=== PATIENT | male | born 1990 | race African-American/Black ===

== ENCOUNTER 2021-03-04 12:43 | Inpatient (IN) ==
[2021-03-04] MEDS ORDERED: SODIUM CHLORIDE 0.9% 1000ML 1,000 ML IV SCH ×2 (13:45→15:45)
--- NOTE | 2021-03-04 13:51 | Emergency Department Note ---
History of Present Illness General Chief complaint: Lethargic Time Seen by Provider: 03/04/21 13:23 History of Present Illness Maximum Pain Intensity: 0 This is a 30-year-old male that presents to the emergency department via EMS over concerns of hypotension per the [facility] where he is currently receiving treatment. Per report the patient has been there since May 2020. He was referred here for hypotension, decreased intake and lethargy. Reportedly his roommate is positive for COVID-19. Documented blood pressure prehospital at the facility was 67/42. Patient is a known diabetic and a BSG prior to arrival here of 102. Also there is history of psychosis and 201 commitment. Review of the patient's chart from the [facility] reveals a diagnosis of paranoid schizophrenia/psychosis and he is currently on several medications. Patient is on medication for his diabetes as well as a regimen of incentive spirometer, vitamin C, vitamin D, zinc, Cogentin, Clozaril, guaifenesin, lisinopril, lithium, Claritin-D, multivitamin, Metformin and Inde ral. When questioned, the patient does not think that he took lithium today. The patient does believe that he has been urinating. I will note that the patient is able to answer many of the questions asked but sometimes does not respond to other questions. The patient at this time denies any fevers, chills, chest pain, shortness of breath, headache, abdominal pain. Patient notes that he is feeling much better upon arrival here to the emergency department. Home Medications Medication Instructions Recorded Confirmed Type acetaminophen 650 mg PO Q4 PRN MDD 2 tabs 03/04/21 03/04/21 History albuterol sulfate 2 puff INHALATION Q4 PRN MDD 6 03/04/21 03/04/21 History doses alum-mag hydroxide-simeth [Antacid 30 ml PO QID PRN 03/04/21 03/04/21 History Plus] ascorbic acid (vitamin C) [Vitamin 1 g PO DAILY 03/04/21 03/04/21 History C] benztropine 0.5 mg PO BID 03/04/21 03/04/21 History chlorpromazine 100 mg PO Q12 PRN MDD 2 tabs 03/04/21 03/04/21 History cholecalciferol (vitamin D3) 50 mcg PO DAILY 03/04/21 03/04/21 History [Vitamin D3] clozapine [Clozaril] 50 mg PO QAM 03/04/21 03/04/21 History clozapine [Clozaril] 75 mg PO HS 03/04/21 03/04/21 History clozapine [Clozaril] 200 mg PO HS 03/04/21 03/04/21 History diphenhydramine HCl 50 mg PO Q12 PRN MDD 2 doses 03/04/21 03/04/21 History guaifenesin 200 mg PO BID 03/04/21 03/04/21 History insulin detemir U-100 [Levemir 20 unit SUBCUT BID 03/04/21 03/04/21 History U-100 Insulin] lisinopril 15 mg PO DAILY 03/04/21 03/04/21 History lithium carbonate [Eskalith CR] 450 mg PO QAM 03/04/21 03/04/21 History lithium carbonate [Lithobid] 600 mg PO HS 03/04/21 03/04/21 History loratadine-pseudoephedrine 1 tab PO Q12H 03/04/21 03/04/21 History [Claritin-D 12 Hour] metformin 1,000 mg PO BID 03/04/21 03/04/21 History multivitamin 1 tab PO DAILY 03/04/21 03/04/21 History nicotine (polacrilex) [Nicorette] 4 mg BUCCAL 5XD PRN MDD 5 03/04/21 03/04/21 History zinc 100 mg PO DAILY 03/04/21 03/04/21 History Allergies Allergy/AdvReac Type Severity Reaction Status Date / Time No Known Allergies Allergy Unverified 03/04/21 16:30 Past Med/Surg History Medical History Hx of diabetes mellitus Paranoid schizophrenia Surgical History No pertinent past surgical history Social History Smoking Status: Current every day smoker Tobacco Type: Cigarettes Cigarettes Per Day: 40; Second Hand Exposure: No; Do You Dip or Chew Tobacco: No; Tobacco Cessation Education Requested by Patient: No Hx Alcohol Use: Yes Alcohol type: beer Hx Substance Use: No Preferred Language: Syriac Beliefs That Will Affect Care: None Current Living Situation: Other Current Living Situation Comment: Pt has been at the [facility] since May 2020 Other Information That Helps Us Care for You: No Feels Safe at Home: Yes Safety Concerns: Feels Safe At This Time Assistive Devices: None Review of Systems A total of 10 systems reviewed and were otherwise negative Physical Exam Vital Signs Vital Signs - 24 hr 03/04/21 12:52 03/04/21 12:54 03/04/21 13:00 Temperature Temperature Source Pulse Rate 80 80 78 Pulse Rate [Apical] Pulse Rate from SpO2 Sensor 80 80 78 Respiratory Rate 17 19 18 Respiratory Effort / Characteristics Respiratory Depth Respiratory Pattern Blood Pressure 94/52 L Blood Pressure [Left Arm] Blood Pressure Mean 66 Blood Pressure Mean [Left Arm] Blood Pressure Position Pulse Oximetry 97 98 98 Oxygen Delivery Method Oxygen Flow Rate Sepsis Recent Fever Within 48 Hours Sepsis New/Unexplained Change in Mental Status Sepsis Action Taken by Nursing 03/04/21 13:06 03/04/21 13:15 03/04/21 13:30 Temperature 36.5 C Temperature Source Oral Pulse Rate 87 78 80 Pulse Rate [Apical] Pulse Rate from SpO2 Sensor 79 80 Respiratory Rate 14 16 18 Respiratory Effort / Characteristics Non-Labored Spontaneous Respiratory Depth Normal Respiratory Pattern Regular Blood Pressure 94/52 L Blood Pressure [Left Arm] Blood Pressure Mean 66 Blood Pressure Mean [Left Arm] Blood Pressure Position Lying Pulse Oximetry 98 97 98 Oxygen Delivery Method Room Air Oxygen Flow Rate Sepsis Recent Fever Within 48 Hours No Sepsis New/Unexplained Change in Mental Status N/A Sepsis Action Taken by Nursing No Action Required 03/04/21 13:45 03/04/21 14:00 03/04/21 14:11 Temperature Temperature Source Pulse Rate 80 80 78 Pulse Rate [Apical] Pulse Rate from SpO2 Sensor Respiratory Rate 14 18 17 Respiratory Effort / Characteristics Respiratory Depth Respiratory Pattern Blood Pressure 77/52 L Blood Pressure [Left Arm] Blood Pressure Mean 60 Blood Pressure Mean [Left Arm] Blood Pressure Position Pulse Oximetry Oxygen Delivery Method Oxygen Flow Rate Sepsis Recent Fever Within 48 Hours Sepsis New/Unexplained Change in Mental Status Sepsis Action Taken by Nursing 03/04/21 14:15 03/04/21 14:16 03/04/21 14:21 Temperature Temperature Source Pulse Rate 81 80 80 Pulse Rate [Apical] 80 Pulse Rate from SpO2 Sensor Respiratory Rate 21 16 18 Respiratory Effort / Characteristics Respiratory Depth Respiratory Pattern Blood Pressure 80/50 L Blood Pressure [Left Arm] 80/50 L Blood Pressure Mean 60 Blood Pressure Mean [Left Arm] 60 Blood Pressure Position Pulse Oximetry 98 Oxygen Delivery Method Room Air Oxygen Flow Rate 98 Sepsis Recent Fever Within 48 Hours Sepsis New/Unexplained Change in Mental Status Sepsis Action Taken by Nursing 03/04/21 14:30 03/04/21 14:31 03/04/21 14:33 Temperature Temperature Source Pulse Rate 81 81 Pulse Rate [Apical] Pulse Rate from SpO2 Sensor Respiratory Rate 15 15 Respiratory Effort / Characteristics Respiratory Depth Respiratory Pattern Blood Pressure 89/55 L Blood Pressure [Left Arm] 89/55 L Blood Pressure Mean 66 Blood Pressure Mean [Left Arm] 66 Blood Pressure Position Pulse Oximetry Oxygen Delivery Method Oxygen Flow Rate Sepsis Recent Fever Within 48 Hours Sepsis New/Unexplained Change in Mental Status Sepsis Action Taken by Nursing 03/04/21 14:56 03/04/21 14:58 03/04/21 15:00 Temperature Temperature Source Pulse Rate 82 81 83 Pulse Rate [Apical] Pulse Rate from SpO2 Sensor Respiratory Rate 16 20 19 Respiratory Effort / Characteristics Respiratory Depth Respiratory Pattern Blood Pressure 94/60 L Blood Pressure [Left Arm] Blood Pressure Mean 71 Blood Pressure Mean [Left Arm] Blood Pressure Position Pulse Oximetry Oxygen Delivery Method Oxygen Flow Rate Sepsis Recent Fever Within 48 Hours Sepsis New/Unexplained Change in Mental Status Sepsis Action Taken by Nursing 03/04/21 15:15 03/04/21 15:30 03/04/21 15:37 Temperature Temperature Source Pulse Rate 84 85 Pulse Rate [Apical] Pulse Rate from SpO2 Sensor Respiratory Rate 18 19 Respiratory Effort / Characteristics Respiratory Depth Respiratory Pattern Blood Pressure 112/64 Blood Pressure [Left Arm] Blood Pressure Mean 80 Blood Pressure Mean [Left Arm] Blood Pressure Position Pulse Oximetry Oxygen Delivery Method Oxygen Flow Rate Sepsis Recent Fever Within 48 Hours Sepsis New/Unexplained Change in Mental Status Sepsis Action Taken by Nursing 03/04/21 16:12 03/04/21 16:13 03/04/21 16:15 Temperature Temperature Source Pulse Rate 95 H 85 83 Pulse Rate [Apical] Pulse Rate from SpO2 Sensor Respiratory Rate 20 20 19 Respiratory Effort / Characteristics Respiratory Depth Respiratory Pattern Blood Pressure 104/63 Blood Pressure [Left Arm] Blood Pressure Mean 76 Blood Pressure Mean [Left Arm] Blood Pressure Position Pulse Oximetry Oxygen Delivery Method Oxygen Flow Rate Sepsis Recent Fever Within 48 Hours Sepsis New/Unexplained Change in Mental Status Sepsis Action Taken by Nursing 03/04/21 16:20 03/04/21 16:30 03/04/21 16:45 Temperature Temperature Source Pulse Rate 85 83 Pulse Rate [Apical] Pulse Rate from SpO2 Sensor Respiratory Rate 16 18 Respiratory Effort / Characteristics Respiratory Depth Respiratory Pattern Blood Pressure Blood Pressure [Left Arm] 112/60 Blood Pressure Mean Blood Pressure Mean [Left Arm] 77 Blood Pressure Position Pulse Oximetry Oxygen Delivery Method Oxygen Flow Rate Sepsis Recent Fever Within 48 Hours Sepsis New/Unexplained Change in Mental Status Sepsis Action Taken by Nursing 03/04/21 17:00 03/04/21 17:15 Temperature Temperature Source Pulse Rate 64 91 H Pulse Rate [Apical] Pulse Rate from SpO2 Sensor 64 Respiratory Rate 16 19 Respiratory Effort / Characteristics Respiratory Depth Respiratory Pattern Blood Pressure 143/93 H Blood Pressure [Left Arm] Blood Pressure Mean 109 Blood Pressure Mean [Left Arm] Blood Pressure Position Pulse Oximetry 94 Oxygen Delivery Method Oxygen Flow Rate Sepsis Recent Fever Within 48 Hours Sepsis New/Unexplained Change in Mental Status Sepsis Action Taken by Nursing VITAL SIGNS - Vital signs and nursing notes were reviewed. Hypotensive, otherwise stable. GENERAL -30-year-old male appearing his stated age who is in no acute distress. Communicates well with provider and answers questions appropriately. The patient is with flat affect. SKIN - Without rashes. No meningeal or petechial rash. HEAD - NC/AT. EYES - PERRL with EOMI bilaterally. Sclera anicteric. EARS - No deformities of external structures noted on gross examination bilaterally. NOSE - Midline and without cyanosis. No epistaxis or purulent drainage noted. MOUTH/OROPHARYNX - Without perioral cyanosis. NECK - Neck with FROM. No nuchal rigidity. LUNGS - Chest wall symmetric without accessory muscle use, intercostals retractions, or central cyanosis. Normal vesicular breath sounds CTA B/L. No wheezes, rales, or rhonchi appreciated. CARDIAC - RRR with S1/S2. No murmur, rubs, or gallops appreciated. ABDOMEN - Abdominal contour normal without pulsations or visible masses. BS normoactive all four quadrants. No tenderness, palpable masses, hepatosplenomegaly, or ascites noted. EXTREMITIES - No clubbing or peripheral cyanosis. No pretibial edema present. +5/5 strength noted in UE/LE bilaterally. NEUROLOGIC - Cranial nerves II through XII grossly intact. Sensory intact to light touch throughout. PSYCH - A&O, and cooperates fully with examiner. Patient is with flat affect but does answer most questions. Course Administered Medications Benztropine Mesylate (Benztropine Mesylate 0.5 Mg Tab) 0.5 mg PO BID BETO Stop: 04/03/21 21:00 Last Admin: 03/04/21 23:16 Dose: 0.5 mg Documented by: [id number] Clozapine (Clozapine 100 Mg Tab) 200 mg PO HS BETO Stop: 04/03/21 21:00 Last Admin: 03/04/21 23:16 Dose: 200 mg Documented by: [id number] Clozapine (Clozapine 25 Mg Tab) 75 mg PO HS BETO Stop: 04/03/21 21:00 Last Admin: 03/04/21 23:16 Dose: 75 mg Documented by: [id number] Guaifenesin (Guaifenesin Sugar Free 100 Mg/5 Ml Udc) 200 mg PO BID BETO Stop: 03/06/21 21:00 Last Admin: 03/04/21 23:16 Dose: 200 mg Documented by: [id number] Parenteral Electrolytes (Normosol-R) 1,000 mls @ 125 mls/hr IV .Q8H BETO Stop: 04/03/21 17:59 Last Admin: 03/04/21 22:44 Dose: 125 mls/hr Documented by: [id number] Loratadine (Loratadine 10 Mg Tab) 10 mg PO DAILY BETO Stop: 03/06/21 08:59 Last Admin: 03/04/21 23:14 Dose: Not Given Documented by: [id number] Discontinued Medications Sodium Chloride (Nss 1000ml) 1,000 mls @ 999 mls/hr IV .Q1H1M BETO Stop: 03/04/21 14:45 Last Infusion: 03/04/21 15:30 Dose: 0 mls/hr Documented by: [id number] Admin: 03/04/21 14:21 Dose: 999 mls/hr Documented by: [id number] Sodium Chloride (Nss 1000ml) 1,000 mls @ 500 mls/hr IV .Q2H BETO Stop: 03/04/21 17:44 Last Infusion: 03/04/21 18:04 Dose: 0 mls/hr Documented by: [id number] Admin: 03/04/21 16:00 Dose: 500 mls/hr Documented by: [id number] Medical Decision Making Laboratory Data Result diagrams: 03/04/21 14:02 03/04/21 14:02 Lab Results 03/04/21 03/04/21 03/04/21 Range/Units 14:02 14:02 14:02 WBC 7.84 (4.8-10.8) K/uL RBC 4.44 L (4.7-6.1) M/uL Hgb 12.7 L (14.0-18.0) g/dL Hct 37.3 L (42-52) % MCV 84.0 (80-100) fL MCH 28.6 (25-34) pg MCHC 34.0 (32-36) g/dL RDW Std Deviation 44.2 (36.4-46.3) fL RDW Coeff of Julia 14.2 (11.5-14.5) % Plt Count 200 (130-400) K/uL MPV 11.6 H (7.4-10.4) fL Immature Gran % (Auto) 0.3 % Neut % (Auto) 66.0 % Lymph % (Auto) 22.7 % Major % (Auto) 8.5 % Eos % (Auto) 2.2 % Baso % (Auto) 0.3 % Neut # (Auto) 5.18 (1.4-6.5) K/uL Lymph # (Auto) 1.78 (1.2-3.4) K/uL Major # (Auto) 0.67 H (0.11-0.59) K/uL Eos # (Auto) 0.17 (0-0.5) K/uL Baso # (Auto) 0.02 (0-0.2) K/uL Immature Gran # (Auto) 0.02 (0.00-0.02) K/uL Sodium 131 L (136-145) mmol/L Potassium 4.9 (3.5-5.1) mmol/L Chloride 101 (98-107) mmol/L Carbon Dioxide 22 (21-32) mmol/L Anion Gap 8.0 (3-11) BUN 41 H (7-18) mg/dl Creatinine 7.50 H* (0.6-1.4) mg/dl Est Cr Clr Drug Dosing 14.9 ml/min Est GFR ( Amer) 10.1 Est GFR (Non-Af Amer) 8.7 BUN/Creatinine Ratio 5.4 L (10-20) Glucose 80 (70-99) mg/dl Lactate (0.4-2.0) mmol/L Calcium 10.0 (8.5-10.1) mg/dl Magnesium 3.2 H (1.8-2.4) mg/dl Total Bilirubin 0.3 (0.2-1) mg/dl AST 10 L (15-37) U/L ALT 31 (12-78) U/L Alkaline Phosphatase 70 (45-117) U/L Troponin I < 0.015 (0-0.045) ng/ml Total Protein 7.8 (6.4-8.2) gm/dl Albumin 3.3 L (3.4-5.0) gm/dl Globulin 4.5 H (2.5-4.0) gm/dl Albumin/Globulin Ratio 0.7 L (0.9-2) Procalcitonin (0-0.5) ng/ml TSH 4.070 (0.300-4.500) uIu/ml [place] 2.4 H* (0.6-1.2) mmol/L COVID-19 Eval Order SARS-CoV-2 (PCR) (Negative) Influenza Type A (PCR) (Neg) Influenza Type B (PCR) (Neg) RSV (RT-PCR) (Neg) 03/04/21 03/04/21 03/04/21 Range/Units 14:02 14:02 14:13 WBC (4.8-10.8) K/uL RBC (4.7-6.1) M/uL Hgb (14.0-18.0) g/dL Hct (42-52) % MCV (80-100) fL MCH (25-34) pg MCHC (32-36) g/dL RDW Std Deviation (36.4-46.3) fL RDW Coeff of Julia (11.5-14.5) % Plt Count (130-400) K/uL MPV (7.4-10.4) fL Immature Gran % (Auto) % Neut % (Auto) % Lymph % (Auto) % Major % (Auto) % Eos % (Auto) % Baso % (Auto) % Neut # (Auto) (1.4-6.5) K/uL Lymph # (Auto) (1.2-3.4) K/uL Major # (Auto) (0.11-0.59) K/uL Eos # (Auto) (0-0.5) K/uL Baso # (Auto) (0-0.2) K/uL Immature Gran # (Auto) (0.00-0.02) K/uL Sodium (136-145) mmol/L Potassium (3.5-5.1) mmol/L Chloride (98-107) mmol/L Carbon Dioxide (21-32) mmol/L Anion Gap (3-11) BUN (7-18) mg/dl Creatinine (0.6-1.4) mg/dl Est Cr Clr Drug Dosing ml/min Est GFR ( Amer) Est GFR (Non-Af Amer) BUN/Creatinine Ratio (10-20) Glucose (70-99) mg/dl Lactate 2.3 H* (0.4-2.0) mmol/L Calcium (8.5-10.1) mg/dl Magnesium (1.8-2.4) mg/dl Total Bilirubin (0.2-1) mg/dl AST (15-37) U/L ALT (12-78) U/L Alkaline Phosphatase (45-117) U/L Troponin I (0-0.045) ng/ml Total Protein (6.4-8.2) gm/dl Albumin (3.4-5.0) gm/dl Globulin (2.5-4.0) gm/dl Albumin/Globulin Ratio (0.9-2) Procalcitonin 0.49 (0-0.5) ng/ml TSH (0.300-4.500) uIu/ml [place] (0.6-1.2) mmol/L COVID-19 Eval Order CovFluRsv at [facility] SARS-CoV-2 (PCR) (Negative) Influenza Type A (PCR) (Neg) Influenza Type B (PCR) (Neg) RSV (RT-PCR) (Neg) 03/04/21 03/04/21 Range/Units 14:13 17:54 WBC (4.8-10.8) K/uL RBC (4.7-6.1) M/uL Hgb (14.0-18.0) g/dL Hct (42-52) % MCV (80-100) fL MCH (25-34) pg MCHC (32-36) g/dL RDW Std Deviation (36.4-46.3) fL RDW Coeff of Julia (11.5-14.5) % Plt Count (130-400) K/uL MPV (7.4-10.4) fL Immature Gran % (Auto) % Neut % (Auto) % Lymph % (Auto) % Major % (Auto) % Eos % (Auto) % Baso % (Auto) % Neut # (Auto) (1.4-6.5) K/uL Lymph # (Auto) (1.2-3.4) K/uL Major # (Auto) (0.11-0.59) K/uL Eos # (Auto) (0-0.5) K/uL Baso # (Auto) (0-0.2) K/uL Immature Gran # (Auto) (0.00-0.02) K/uL Sodium (136-145) mmol/L Potassium (3.5-5.1) mmol/L Chloride (98-107) mmol/L Carbon Dioxide (21-32) mmol/L Anion Gap (3-11) BUN (7-18) mg/dl Creatinine (0.6-1.4) mg/dl Est Cr Clr Drug Dosing ml/min Est GFR ( Amer) Est GFR (Non-Af Amer) BUN/Creatinine Ratio (10-20) Glucose (70-99) mg/dl Lactate 1.1 (0.4-2.0) mmol/L Calcium (8.5-10.1) mg/dl Magnesium (1.8-2.4) mg/dl Total Bilirubin (0.2-1) mg/dl AST (15-37) U/L ALT (12-78) U/L Alkaline Phosphatase (45-117) U/L Troponin I (0-0.045) ng/ml Total Protein (6.4-8.2) gm/dl Albumin (3.4-5.0) gm/dl Globulin (2.5-4.0) gm/dl Albumin/Globulin Ratio (0.9-2) Procalcitonin (0-0.5) ng/ml TSH (0.300-4.500) uIu/ml [place] (0.6-1.2) mmol/L COVID-19 Eval Order SARS-CoV-2 (PCR) POSITIVE A* (Negative) Influenza Type A (PCR) Negative (Neg) Influenza Type B (PCR) Negative (Neg) RSV (RT-PCR) Negative (Neg) Imaging Data Radiologist's Impression: Chest X-Ray 03/04/21 13:44 XR chest 1V portable CLINICAL HISTORY: hypotension, lethargic COMPARISON STUDY: No previous studies for comparison. FINDINGS: Lung volumes are at the lower limits of normal. Lungs are clear. There is no pneumothorax or pleural effusion. Cardiac size is normal. Mediastinal contours are normal. There is no evidence for pulmonary edema. IMPRESSION: No acute cardiopulmonary findings. ACT 112: Negative or not required by law. Electronically signed by: Kolby Vergara M.D. 03/04/2021 2:[address] 03/04/21 13:44 CT head/brain wo con CLINICAL HISTORY: hypotension, lethargic COMPARISON STUDY: No previous studies for comparison. TECHNIQUE: Axial CT of the brain is performed from the vertex to the skull base. IV contrast was not administered for this examination. A dose lowering umair hnique was utilized adhering to the principles of ALARA. CT DOSE: 1973.40 mGycm FINDINGS: No intra or extra-axial mass lesions are visualized. There is no CT evidence of acute cortical infarction. There is no evidence of midline shift. There is no acute hemorrhage. No calvarial fractures are visualized. There is no evidence of pathologic ventricular dilatation. There is ethmoid and maxillary and sphenoid sinus mucosal thickening. There is a sphenoid sinus air-fluid level. IMPRESSION: 1. No acute intracranial findings 2. Inflammatory changes within the paranasal sinuses ACT 112: Negative or not required by law. Electronically signed by: Sabino Jaquez M.D. 03/04/2021 4:09 PM Abdomen/Pelvis CT 03/04/21 15:[address] WITHOUT CONTRAST CT DOSE: 1206.15 mGycm HISTORY: acute renal failure TECHNIQUE: Multiaxial CT images of the abdomen and pelvis were performed without contrast. A dose lowering technique was utilized adhering to the principles of ALARA. COMPARISON STUDY: None. FINDINGS: Suboptimal study due to the motion artifact. The left lung base appears clear. There are few small nodular densities within the right lower lobe with the largest on image 4 measuring 9 mm. These favor small focal areas of inflammatory/infectious change given the patient's age. No pneumoperitoneum. No pneumatosis. No fractures within the visualized osseous structures. Streak artifact from the patient's overlapping arms. The unenhanced liver, spleen, gallbladder, adrenal glands, and pancreas are unremarkable. No retroperitoneal lymphadenopathy. Normal caliber abdominal aorta. 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 No renal or ureteral stones. No hydronephrosis. Moderate bladder wall thickening with adjacent fat stranding. The bladder is completely decompressed. No pelvic free fluid. Suboptimal evaluation for bowel pathology due to the lack of intravenous and oral contrast. However, there is no definite bowel wall thickening or obstruction. Normal appendix. IMPRESSION: 1. Moderate bladder wall thickening with adjacent fat stranding. This could be d ue to the decompression. However, recommend correlation with urinalysis to assess for a cystitis. 2. Horseshoe kidney. No renal or ureteral stones. No hydronephrosis. 3. No definite bowel wall thickening or obstruction. 4. Normal appendix. 5. There are few small nodular densities within the right lower lobe with the largest measuring 9 mm. This favors mild inflammatory/infectious change. ACT 112: Negative or not required by law. Electronically signed by: Joss Alicea M.D. 03/04/2021 4:15 PM MDM Narrative Patient was seen and evaluated as above in room C10. Review was performed of nursing notes and vital signs. I did review pertinent patient history from the [facility]. After obtaining a thorough history and physical examination the above work up was performed. Patient presents to us today with concerns of hypotension. On arrival he does answer most questions appropriately but is with flat affect. He is hypotensive. Options of care were discussed with the patient. IV access established. Labs were drawn. He was given IV fluids. Laboratory studies were no leukocytosis. Mild anemia noted with hemoglobin of 12.7. Patient is with creatinine here of 7.5 with a BUN at 41. Baseline is unknown. Sodium 131. Lactate 2.3. Mag nesium 3.2. Pro-Nader and TSH are within normal limits. Covid testing here is positive. [place] level is elevated at 2.4. With the findings as noted above I did find it reasonable to discuss the case with the on-call fireworks assembly supervisor, Dr. Elliott. We discussed the importance of identifying if the patient is able to produce urine. At that time of the conversation the Covid testing was pending and the patient had not been able to give a urine sample. We discussed how if the patient was able to produce urine on his own then emergent dialysis is not necessarily needed however if he continues without any urine output despite IV hydration here then dialysis is indicated. I will note that since that conversation the patient reportedly has been able to urinate but has yet to provide a sample. In addition I did obtain a CT scan of the patient's head as well as abdomen/pelvis all without contrast. There is moderate bladder wall thickening noted with adjacent fat stranding. CT scan of the head without acute process. Urinalysis pending at this time. I do find it to be in the patient's best interest to stay here in the hospital for further evaluation and management. Case discussed with the hospitalist team. Patient will be admitted to the hospital. Please refer to further documentation regarding his stay. I also obtained patient consent and discussed patient case with his nurse at the [facility] to obtain further history. I spoke with Pam. Patient has been there since May 2020 and usually is quite verbal but as of late has been quite lethargic and was found to be hypotensive today. Case was discussed with the attending physician. Patient's EKG here reveals sinus rhythm at a rate of [address] elevation noted in leads I, 2 as well as aVF. Mild ST depression noted in lead V1. This is not felt to represent a STEMI given clinical presentation and findings here today. An order was placed for continuous cardiac monitoring. The monitor shows a rate of 80 with sinus rhythm. I attest that I have personally reviewed the patient medication list. GCS: 15 In the evaluation and treatment of this patient the following differential diagnoses were entertained: COVID-19, dehydration, ARF, electrolyte disturbance, myocarditis, pericarditis, NV, PE, pneumonia, among others. Impression & Plan HARVEY (acute kidney injury), Hypotension, [place] toxicity, COVID-19 Discharge Plan Visit Data Chief Complaint: Lethargic ED Provider: Yokasta Hitchcock ED Midlevel Provider: Emeka Meléndez Discharge Problem: HARVEY (acute kidney injury), Hypotension, [place] toxicity, COVID-19 Patient Disposition: Admitted As Inpatient Condition: Good Discharge Instructions Interventions: ED Discharge Assessment Last Done: 03/04/21 20:25
--- NOTE | 2021-03-04 14:26 | XRay Report ---
XR chest 1V portable CLINICAL HISTORY: hypotension, lethargic COMPARISON STUDY: No previous studies for comparison. FINDINGS: Lung volumes are at the lower limits of normal. Lungs are clear. There is no pneumothorax o r pleural effusion. Cardiac size is normal. Mediastinal contours are normal. There is no evidence for pulmonary edema. IMPRESSION: No acute cardiopulmonary findings. ACT 112: Negative or not required by law. Electronically signed by: Kolby Vergara M.D. 03/04/2021 2:24 PM
[2021-03-04 14:35] LABS: Basophils # (auto) 0.02 K/uL (0-0.2); Basophils % (auto) 0.3 %; Eosinophils # (auto) 0.17 K/uL (0-0.5); Eosinophils % (auto) 2.2 %; Hematocrit (blood only) 37.3 % (42-52); Hemoglobin 12.7 g/dL (14.0-18.0); Immature Granulocytes # (auto) 0.02 K/uL (0.00-0.02); Immature Granulocytes % (auto) 0.3 %; Lymphocytes # (auto) 1.78 K/uL (1.2-3.4); Lymphocytes % (auto) 22.7 %; Mean Corpuscular Hemoglobin 28.6 pg (25-34); Mean Platelet Volume 11.6 fL (7.4-10.4); Monocytes # (auto) 0.67 K/uL (0.11-0.59); Monocytes % (auto) 8.5 %; Neutrophils # (auto) 5.18 K/uL (1.4-6.5); Platelet Count 200 K/uL (130-400); RDW Coefficient of Variation 14.2 % (11.5-14.5); RDW Standard Deviation 44.2 fL (36.4-46.3); Red Blood Count 4.44 M/uL (4.7-6.1); White Blood Count 7.84 K/uL (4.8-10.8)
[2021-03-04 15:06] LABS: Alanine Aminotransferase 31 U/L (12-78); Albumin Globulin Ratio 0.7 (0.9-2); Albumin Level 3.3 gm/dl (3.4-5.0); Alkaline Phosphatase 70 U/L (45-117); Aspartate Aminotransferase 10 U/L (15-37); BUN Creatinine Ratio 5.4 (10-20); Bilirubin,Total 0.3 mg/dl (0.2-1); Blood Urea Nitrogen 41 mg/dl (7-18); Carbon Dioxide 22 mmol/L (21-32); Chloride 101 mmol/L (98-107); Creatinine Clr Calc Pharmacy 14.9 ml/min; Est GFR (African American) 10.1; Est GFR (Non-African American) 8.7; Globulin 4.5 gm/dl (2.5-4.0); Glucose 80 mg/dl (70-99); Magnesium 3.2 mg/dl (1.8-2.4); Potassium 4.9 mmol/L (3.5-5.1); Sodium 131 mmol/L (136-145); Total Protein 7.8 gm/dl (6.4-8.2); Troponin I < 0.015 ng/ml (0-0.045)
--- NOTE | 2021-03-04 15:27 | Electrocardiogram Report ---
Test Reason : Blood Pressure : / mmHG Vent. Rate : 080 BPM Atrial Rate : 080 BPM P-R Int : 188 ms QRS Dur : 090 ms QT Int : 376 ms P-R-T Axes : 060 037 030 degrees QTc Int : 433 ms Normal sinus rhythm ST elevation, consider early repolarization, pericarditis, or injury Abnormal ECG No previous ECGs available Confirmed by Kirk Noland ([id number]) on 03/04/2021 3:27:19 PM Referred By: Yoseph Rosado Confirmed By:Kevin Noland
[2021-03-04 15:29] LABS: Influenza A virus by PCR Negative (Neg); Influenza B virus by PCR Negative (Neg); RSV by PCR Negative (Neg)
[2021-03-04 15:38] LABS: SARS CoV2 RNA(COVID-19) InHosp POSITIVE (Negative)
--- NOTE | 2021-03-04 16:10 | CT Scan Report ---
CT head/brain wo con CLINICAL HISTORY: hypotension, lethargic COMPARISON STUDY: No previous studies for comparison. TECHNIQUE: Axial CT of the brain is performed from the vertex to the skull base. IV contrast was not administered for this examination. A dose lowering technique was utilized adhering to the principles of ALARA. CT DOSE: 1973.40 mGycm FINDINGS: No intra or extra-axial mass lesions are visualized. There is no CT evidence of acute cortical infarc tion. There is no evidence of midline shift. There is no acute hemorrhage. No calvarial fractures ar e visualized. There is no evidence of pathologic ventricular dilatation. There is ethmoid and maxillary and sphenoid sinus mucosal thickening. There is a sphenoid sinus air-f luid level. IMPRESSION: 1. No acute intracranial findings 2. Inflammatory changes within the paranasal sinuses ACT 112: Negative or not required by law. Electronically signed by: Sabino Jaquez M.D. 03/04/2021 4:09 PM
--- NOTE | 2021-03-04 16:16 | CT Scan Report ---
ABDOMEN AND PELVIS CT WITHOUT CONTRAST CT DOSE: 1206.15 mGycm HISTORY: acute renal failure TECHNIQUE: Multiaxial CT images of the abdomen and pelvis were performed without contrast. A dose lo wering technique was utilized adhering to the principles of ALARA. COMPARISON STUDY: None. FINDINGS: Suboptimal study due to the motion artifact. The left lung base appears clear. There are fe w small nodular densities within the right lower lobe with the largest on image 4 measuring 9 mm. The se favor small focal areas of inflammatory/infectious change given the patient's age. No pneumoperito neum. No pneumatosis. No fractures within the visualized osseous structures. Streak artifact from the patient's overlapping arms. The unenhanced liver, spleen, gallbladder, adrenal glands, and pancreas are unremarkable. No retroperitoneal lymphadenopathy. Normal caliber abdominal aorta. 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 No renal or ureteral stones. No hydronephrosis. Moderate bladder wall thickening with a djacent fat stranding. The bladder is completely decompressed. No pelvic free fluid. Suboptimal evalu ation for bowel pathology due to the lack of intravenous and oral contrast. However, there is no defi nite bowel wall thickening or obstruction. Normal appendix. IMPRESSION: 1. Moderate bladder wall thickening with adjacent fat stranding. This could be due to the decompressi on. However, recommend correlation with urinalysis to assess for a cystitis. 2. Horseshoe kidney. No renal or ureteral stones. No hydronephrosis. 3. No definite bowel wall thickening or obstruction. 4. Normal appendix. 5. There are few small nodular densities within the right lower lobe with the largest measuring 9 mm. This favors mild inflammatory/infectious change. ACT 112: Negative or not required by law. Electronically signed by: Joss Alicea M.D. 03/04/2021 4:15 PM
--- NOTE | 2021-03-04 17:34 | Nephrology Consultation ---
Date of Consultation March 04, 2021 Assessment & Plan (1) HARVEY (acute kidney injury): Clinically appears prerenal. UA/microscopy pending. Non-oliguric per history. CT negative for obstruction. Electrolytes acceptable. Tolerating IVF. Continue balanced isotonic IVF replacement to encourage positive fluid balance. Document strict I/O's. Repeat metabolic profile at 7 PM. No emergent indication for hemodialysis at this time. We revisit need for dialysis if mental status declines or inadequate urine output. (2) [place] toxicity: [place] held. IVF being provided. Lethargy is improving with supportive care. Will hold HD for now while monitoring. (3) Hypotension: Hold lisinopril. BP improving with intravascular volume expansion. (4) Diabetes mellitus: Hold metformin. History of Present Illness Reason for Consultation: HARVEY Requesting Physician: mEeka Meléndez PA-C Attending Physician: Emeka Meléndez PA-C History of Present Illness Mr. Marilin Galeas is a 30-year-old male with a complicated psychiatric history including paranoid schizophrenia. He presented to the ED at [facility] today for evaluation of mental status changes. Workup notable for HARVEY with a serum creatinine of 7 mg/dL and elevated lithium level of 2.4. The attending ER provider contacted me to review the plan of care. Mr. Galeas was seen and evaluated this afternoon. I discussed the patient with the bedside nurse and reviewed the plan of care with Emeka Meléndez PA-C as well as Dr. Partida (admitting hospitalist). Baseline creatinine unknown at this time. CT scan of the abdomen and pelvis demonstrated a horseshoe kidney without evidence of obstruction. Marilin is a resident at the [facility]. His roommate recently tested positive for COVID-19. Marilin has been progressively lethargic for several days. He was found to be hypotensive and confused today prompting transfer to the ER for evaluation. Medical history is notable for diabetes mellitus, hypertension. Management has included IVF. Marilin has received 2 L of NSS. He is subjectively non-oliguric. No urine sample has been collected in the ER at this time. Mental status is improving with IVF and supportive care. Allergies Allergy/AdvReac Type Severity Reaction Status Date / Time No Known Allergies Allergy Unverified 03/04/21 16:30 Home Medications Medication Instructions Recorded Confirmed Type acetaminophen 650 mg PO Q4 PRN MDD 2 tabs 03/04/21 03/04/21 History albuterol sulfate 2 puff INHALATION Q4 PRN MDD 6 03/04/21 03/04/21 History doses alum-mag hydroxide-simeth [Antacid 30 ml PO QID PRN 03/04/21 03/04/21 History Plus] ascorbic acid (vitamin C) [Vitamin 1 g PO DAILY 03/04/21 03/04/21 History C] benztropine 0.5 mg PO BID 03/04/21 03/04/21 History chlorpromazine 100 mg PO Q12 PRN MDD 2 tabs 03/04/21 03/04/21 History cholecalciferol (vitamin D3) 50 mcg PO DAILY 03/04/21 03/04/21 History [Vitamin D3] clozapine [Clozaril] 50 mg PO QAM 03/04/21 03/04/21 History clozapine [Clozaril] 75 mg PO HS 03/04/21 03/04/21 History clozapine [Clozaril] 200 mg PO HS 03/04/21 03/04/21 History diphenhydramine HCl 50 mg PO Q12 PRN MDD 2 doses 03/04/21 03/04/21 History guaifenesin 200 mg PO BID 03/04/21 03/04/21 History insulin detemir U-100 [Levemir 20 unit SUBCUT BID 03/04/21 03/04/21 History U-100 Insulin] lisinopril 15 mg PO DAILY 03/04/21 03/04/21 History lithium carbonate [Eskalith CR] 450 mg PO QAM 03/04/21 03/04/21 History lithium carbonate [Lithobid] 600 mg PO HS 03/04/21 03/04/21 History loratadine-pseudoephedrine 1 tab PO Q12H 03/04/21 03/04/21 History [Claritin-D 12 Hour] metformin 1,000 mg PO BID 03/04/21 03/04/21 History multivitamin 1 tab PO DAILY 03/04/21 03/04/21 History nicotine (polacrilex) [Nicorette] 4 mg BUCCAL 5XD PRN MDD 5 03/04/21 03/04/21 History zinc 100 mg PO DAILY 03/04/21 03/04/21 History Patient History Medical History Hx of diabetes mellitus Paranoid schizophrenia Surgical History No pertinent past surgical history Social History Smoking Status: Current every day smoker Tobacco Type: Cigarettes Preferred Language: Icelandic Feels Safe at Home: Yes Review of Systems 2 Review of Systems: All systems reviewed & are unremarkable except as noted in HPI & below Physical Exam Physical Exam: Limited due to COVID 19 Constitutional: well developed and + obese; no acute distress Eyes: + anicteric sclerae; no conjunctival abnormality ENMT: Mouth: no oral mucosal abnormality and oral mucous membranes not dry Neck: normal visual inspection and trachea midline Respiratory: normal respiratory effort Auscultation: lungs clear to auscultation bilaterally Cardiovascular: Rate/Rhythm: regular rhythm Heart Sounds: normal S1 and normal S2 Extremities: no edema Gastrointestinal (Abdomen): Inspection/Auscultation: + abdomen distended Percussion/Palpation: abdomen soft; abdomen nontender Musculoskeletal: Extremities: no cyanosis and no clubbing Skin: normal turgor Neurologic: Motor/Sensory: no tremor and no asterixis Results & Data ([facility]) Vital Signs (Past 12 Hours) Vital Signs Temp Pulse Pulse Resp BP BP Pulse Ox 03/04/21 16:20 112/60 03/04/21 14:33 89/55 L 03/04/21 14:21 80 80 18 80/50 L 98 03/04/21 13:06 36.5 C 87 14 94/52 L 98 PG Care Time/CCT Total # of Minutes Spent Total Time Spent with Patient: Total time spent is greater than 50% in coordination of care (as documented) at patient's floor/unit and/or counseling patient: Coding Level of Care Code 78674 Inpt Consult Level 4 Diagnoses HARVEY (acute kidney injury) N17.9 [place] toxicity T56.891A Hypotension I95.9 Diabetes mellitus E11.9
[2021-03-04] MEDS ORDERED: ACETAMINOPHEN 325 MG TAB PO PRN ×2 (17:54→21:01)
[2021-03-04] MEDS ORDERED: ONDANSETRON INJ 2 MG/ML 2 ML VIAL IV PRN (17:54)
[2021-03-04 19:33] LABS: Appearance Urine Cloudy (Clear); Bacteria Urine Automated Negative (Negative); Bilirubin Urine Negative (Negative); Blood Urine Trace (Negative); Color Urine Dark Yellow; Epithelial Cell Urine Auto >30 /lpf (0-5); Glucose Urine UA Negative (Negative); Ketones Urine Negative (Negative); Leukocyte Esterase Urine Negative (Negative); Nitrite Urine Negative (Negative); Protein Urine 2+ (Negative); RBC Urine Automated 0-4 /hpf (0-4); Specific Gravity Urine 1.014 (1.000-1.030); Urobilinogen Urine Negative (Negative); pH Urine 5.5 (4.5-7.5)
[2021-03-04 20:14] LABS: Amphetamines+Metham, Urine Neg (Neg); Barbiturates, Urine Neg (Neg); Benzodiazepine, Urine Neg (Neg); Cocaine, Urine Neg (Neg); MDMA (Ecstacy), Urine Neg (Neg); Methadone, Urine Neg (Neg); Opiate, Urine Neg (Neg); Phencyclidine, Urine Neg (Neg)
[2021-03-04 20:16] LABS: Calcium Oxalate Crystals Urine Present (None Prsent)
[2021-03-04] MEDS ORDERED: ALUMINUM/MAGNESIUM/SIMETH (MAALOX MAX) 30 ML UDC PO PRN (21:43)
[2021-03-04] MEDS: NORMOSOL-R 1,000 ML IV SCH (22:44)
[2021-03-04] MEDS: LORATADINE 10 MG TAB PO SCH (23:14)
[2021-03-04] MEDS: BENZTROPINE MESYLATE 0.5 MG TAB PO SCH (23:16)
[2021-03-04] MEDS: guaiFENesin SUGAR FREE 100 MG/5 ML UDC PO SCH (23:16)
[2021-03-04] MEDS: cloZAPine 25 MG TAB PO SCH (23:16)
[2021-03-04] MEDS: cloZAPine 100 MG TAB PO SCH (23:16)
[2021-03-05] MEDS: NORMOSOL-R 1,000 ML IV SCH ×3 (06:28→20:50)
--- NOTE | 2021-03-05 07:01 | History & Physical Report ---
Date of Service March 04, 2021 Assessment & Plan (1) [place] toxicity: [place] toxicity likely excerbated by HARVEY will give IVF. and monitor will hold lithium (2) HARVEY (acute kidney injury): as above. continue IVF. (3) COVID-19: Saturating well. Do not need decadron at this time. (4) Diabetes mellitus: on orals. will hold and monitor. (5) Paranoid schizophrenia: continue meds except for lithium. Admission and Anticipated Discharge Date Admission Date: March 04, 2021 History of Present Illness Chief Complaint: HARVEY/ mental status change Primary Care Provider: Yoseph Rosado 30 yo male who is a paranoid schizophrenic and a resident at the [facility] presents to the ospital for mental status vhanges. Patient is a poor historian, unable to obtain further history Allergies Allergy/AdvReac Type Severity Reaction Status Date / Time No Known Allergies Allergy Unverified 03/04/21 16:30 Home Medications Medication Instructions Recorded Confirmed Type acetaminophen 650 mg PO Q4 PRN MDD 2 tabs 03/04/21 03/04/21 History albuterol sulfate 2 puff INHALATION Q4 PRN MDD 6 03/04/21 03/04/21 History doses alum-mag hydroxide-simeth [Antacid 30 ml PO QID PRN 03/04/21 03/04/21 History Plus] ascorbic acid (vitamin C) [Vitamin 1 g PO DAILY 03/04/21 03/04/21 History C] benztropine 0.5 mg PO BID 03/04/21 03/04/21 History chlorpromazine 100 mg PO Q12 PRN MDD 2 tabs 03/04/21 03/04/21 History cholecalciferol (vitamin D3) 50 mcg PO DAILY 03/04/21 03/04/21 History [Vitamin D3] clozapine [Clozaril] 50 mg PO QAM 03/04/21 03/04/21 History clozapine [Clozaril] 75 mg PO HS 03/04/21 03/04/21 History clozapine [Clozaril] 200 mg PO HS 03/04/21 03/04/21 History diphenhydramine HCl 50 mg PO Q12 PRN MDD 2 doses 03/04/21 03/04/21 History guaifenesin 200 mg PO BID 03/04/21 03/04/21 History insulin detemir U-100 [Levemir 20 unit SUBCUT BID 03/04/21 03/04/21 History U-100 Insulin] lisinopril 15 mg PO DAILY 03/04/21 03/04/21 History lithium carbonate [Eskalith CR] 450 mg PO QAM 03/04/21 03/04/21 History lithium carbonate [Lithobid] 600 mg PO HS 03/04/21 03/04/21 History loratadine-pseudoephedrine 1 tab PO Q12H 03/04/21 03/04/21 History [Claritin-D 12 Hour] metformin 1,000 mg PO BID 03/04/21 03/04/21 History multivitamin 1 tab PO DAILY 03/04/21 03/04/21 History nicotine (polacrilex) [Nicorette] 4 mg BUCCAL 5XD PRN MDD 5 03/04/21 03/04/21 History zinc 100 mg PO DAILY 03/04/21 03/04/21 History Past Med/Surg History Medical History Hx of diabetes mellitus Paranoid schizophrenia Surgical History No pertinent past surgical history Social History Smoking Status: Current every day smoker Tobacco Type: Cigarettes Cigarettes Per Day: 40; Second Hand Exposure: No; Do You Dip or Chew Tobacco: No; Tobacco Cessation Education Requested by Patient: No Hx Alcohol Use: Yes Alcohol type: beer Hx Substance Use: No Preferred Language: American Beliefs That Will Affect Care: None Current Living Situation: Other Current Living Situation Comment: Pt has been at the [facility] since May 2020 Other Information That Helps Us Care for You: No Feels Safe at Home: Yes Safety Concerns: Feels Safe At This Time Assistive Devices: None Review of Systems Review of Systems: Unobtainable due to cognitive status Physical Exam Constitutional: WD/WN, vitals as above Eyes: PERRL, conjunctivae normal, anicteric sclerae ENMT: external ear and nose normal, oropharynx normal (except for dry mucous membranes) Neck: trachea midline, no thyromegaly Respiratory: normal respiratory effort, lungs clear to auscultation Cardiovascular: Rate/Rhythm: regular rhythm and + tachycardic Heart Sounds: normal S1 and normal S2 Gastrointestinal (Abdomen): normal bowel sounds, soft, nontender, no hepatosplenomegaly Musculoskeletal: no cyanosis or clubbing, extremities motor strength 5/5 (moves all extremities) Skin: no rashes, warm and dry Neurologic: PERRL, EOMI, accommodation nl, no face palsy, no dysarthria Psychiatric: Orientation: alert and oriented to person Results & Data Results & Data ([facility]) Vital Signs (Past 12 Hours) Vital Signs Temp Pulse Pulse Resp BP Pulse Ox 03/05/21 03:00 36.4 C L 92 H 17 111/64 97 03/04/21 23:44 36.9 C 97 H 17 116/85 97 03/04/21 20:40 37.6 C H 100 H 20 120/71 96 03/04/21 19:45 97 H 14 03/04/21 19:30 101 H 30 H 03/04/21 19:15 97 H 14 03/04/21 19:00 96 H 17 PG Care Time/CCT Total # of Minutes Spent Total Time Spent with Patient: Total time spent is greater than 50% in coordination of care (as documented) at patient's floor/unit and/or counseling patient: Coding Level of Care Code 28297 Initial Inpt Care Lvl 2 Diagnoses [place] toxicity T56.891A HARVEY (acute kidney injury) N17.9 COVID-19 U07.1 Diabetes mellitus E11.9 Paranoid schizophrenia F20.0 Time Spent (min) 50
[2021-03-05] MEDS ORDERED: SODIUM CHLORIDE 0.9% 1000ML 1,000 ML IV SCH (07:30)
[2021-03-05] MEDS ORDERED: CARBOHYDRATES FOR HYPOGLYCEMIA PO PRN (07:50)
[2021-03-05] MEDS ORDERED: GLUCOSE 40% GEL 15 GM TUBE PO PRN (07:50)
[2021-03-05] MEDS ORDERED: GLUCOSE 10 TABS/TUBE PO PRN (07:50)
[2021-03-05] MEDS ORDERED: GLUCAGON FOR INJ 1 MG VIAL SQ PRN (07:50)
[2021-03-05] MEDS ORDERED: DEXTROSE 50% 50 ML SYRINGE IV PRN (07:50)
--- NOTE | 2021-03-05 08:07 | Hospitalist Progress Note ---
Date of Service March 05, 2021 Assessment & Plan (1) [place] toxicity: [place] toxicity likely excerbated by HARVEY Continue to hydrate and follow lithium levels No further lithium administered (2) HARVEY (acute kidney injury): as above. continue IVF. * ATN in setting of hypotension, ?possible sepsis, and lithium toxicity Creatinine is come down from 7.5 ->6.32. Bicarbonate remains somewhat low and potassium is stable (3) COVID-19: Saturating well. No signs of Covid pneumonia at this time Do not need decadron at this time. (4) Diabetes mellitus: on orals. will hold placed on sliding scale insulin and monitor. (5) Paranoid schizophrenia: continue benztropine clozapine continue to hold lithium. Patient has a one-to-one sitter. Patient has been a long-term resident of the [facility] from May 2020 hopefully will return to the facility once medically clear Admission and Anticipated Discharge Date Admission Date: March 04, 2021 Subjective Patient with limited physical and vocal interaction. Patient comes to us from an inpatient psychiatric facility where he has been a resident since May 2020. He says he has had some abdominal pain which is since resolved. He appears to have some nystagmus like eye movements. Otherwise he is very quiet of speech and bradykinetic of movement no other focal complaints Review of Systems Review of Systems: Mild distress and fatigue no headache, blurry or double vision no speech or swallowing issues no chest pain, pressure or palpitations no shortness of breath, cough or wheezes Minor bilateral lower quadrant abdominal pain, no nausea or vomiting, diarrhea or constipation no dysuria, hematuria or frequency no focal joint pain or swelling no back pain, CVA tenderness or radicular pain no bruising, bleeding or rashes no focal signs of weakness or numbness or altered sensation no complaints of anxiety or depression.. Physical Exam Physical Exam: The patient appeared well nourished and normally developed. Vital signs as documented. Head exam is normocephalic atraumatic no scleral icterus is of some nystagmus Neck is without JVD, thyromegaly, or carotid bruits. Lungs are clear to auscultation, no focal loss of breath sounds (no signs of Covid pneumonia) Cardiac exam, Rhythm is regular.. No murmurs, rubs or gallops. Abdominal exam reveals normal bowel sounds, soft non tender, slight distention no masses Extremities are nonedematous and both pedal pulses are present Neurologic exam is alert and oriented, no focal loss of strength or sensation Skin is without bruises or rashes Psychologically is without concerns for anxiety or depression Results & Data Results & Data ([facility]) Vital Signs (Past 12 Hours) Vital Signs Temp Pulse Resp BP Pulse Ox 03/05/21 07:58 84 20 101/68 94 03/05/21 03:00 97.5 F L 92 H 17 111/64 97 03/04/21 23:44 98.4 F 97 H 17 116/85 97 03/04/21 20:40 99.7 F H 100 H 20 120/71 96 PG Care Time/CCT Total # of Minutes Spent Total Time Spent with Patient: Total time spent is greater than 50% in coordination of care (as documented) at patient's floor/unit and/or counseling patient: Coding Level of Care Code 56417 Subseq Hosp Care Lvl 3 Diagnoses [place] toxicity T56.891A HARVEY (acute kidney injury) N17.9 COVID-19 U07.1 Diabetes mellitus E11.9 Paranoid schizophrenia F20.0
[2021-03-05] MEDS ORDERED: lisinopril 5 MG TAB PO SCH (09:00)
[2021-03-05] MEDS ORDERED: PSEUDOEPHEDRINE HCL 30 MG TAB PO SCH (09:00)
[2021-03-05] MEDS: ASCORBIC ACID 500 MG TAB PO SCH (09:35)
[2021-03-05] MEDS: guaiFENesin SUGAR FREE 100 MG/5 ML UDC PO SCH ×2 (09:35→22:06)
[2021-03-05] MEDS: ZINC SULFATE 220 MG CAPSULE PO SCH (09:35)
[2021-03-05] MEDS: MULTIVITAMIN TAB PO SCH (09:35)
[2021-03-05] MEDS: LORATADINE 10 MG TAB PO SCH (09:36)
[2021-03-05] MEDS: CHOLECALCIFEROL 1,000 UNITS 25 MCG TAB PO SCH (09:36)
[2021-03-05] MEDS: cloZAPine 25 MG TAB PO SCH ×2 (09:37→22:06)
--- NOTE | 2021-03-05 10:20 | Nephrology Progress Note ---
Date of Service March 05, 2021 Assessment & Plan (1) HARVEY (acute kidney injury): Clinically appears prerenal. UA bland. Microscopy demonstrates hyaline and granular casts suggestive of prerenal physiology and possible ATN. AM labs pending. CT negative for obstruction. Tolerating IVF. Continue balanced isotonic IVF replacement to encourage positive fluid balance. Document strict I/O's. No emergent indication for hemodialysis at this time. We revisit need for dialysis if mental status declines or inadequate urine output. (2) [place] toxicity: [place] held. IVF being provided. Lethargy is improving with supportive care. No emergent indication for HD. (3) Hypotension: Hold lisinopril. BP improving with intravascular volume expansion. (4) Diabetes mellitus: Hold metformin. Admission and Anticipated Discharge Date Admission Date: March 04, 2021 Subjective Ali was out of bed ambulating in his room this morning. He was very reserved and did not answer questions in complete sentences. No fevers or chills. Voiding large amount of urine per report but not allowing output to be measured by nursing. Tolerating IVF well. No dyspnea. Review of Systems Review of Systems: All systems reviewed & are unremarkable except as noted in HPI & below Physical Exam Constitutional: well developed and + obese; no acute distress Eyes: + anicteric sclerae; no conjunctival abnormality ENMT: Mouth: no oral mucosal abnormality and oral mucous membranes not dry Neck: normal visual inspection and trachea midline Respiratory: normal respiratory effort Auscultation: lungs clear to auscultation bilaterally Cardiovascular: Rate/Rhythm: regular rhythm Heart Sounds: normal S1 and normal S2 Extremities: no edema Gastrointestinal (Abdomen): Percussion/Palpation: abdomen soft; abdomen nontender Musculoskeletal: Extremities: no cyanosis and no clubbing Skin: normal turgor Neurologic: Motor/Sensory: no tremor and no asterixis Results & Data ([facility]) Vital Signs (Past 12 Hours) Vital Signs Temp Pulse Resp BP Pulse Ox 03/05/21 07:58 84 20 101/68 94 03/05/21 03:00 36.4 C L 92 H 17 111/64 97 03/04/21 23:44 36.9 C 97 H 17 116/85 97 Laboratory Results Laboratory Results - last 24 hr 03/04/21 03/04/21 03/04/21 14:02 14:02 14:02 WBC 7.84 RBC 4.44 L Hgb 12.7 L Hct 37.3 L MCV 84.0 MCH 28.6 MCHC 34.0 RDW Std Deviation 44.2 RDW Coeff of Julia 14.2 Plt Count 200 MPV 11.6 H Immature Gran % (Auto) 0.3 Neut % (Auto) 66.0 Lymph % (Auto) 22.7 [place] % (Auto) 8.5 Eos % (Auto) 2.2 Baso % (Auto) 0.3 Neut # (Auto) 5.18 Lymph # (Auto) 1.78 [place] # (Auto) 0.67 H Eos # (Auto) 0.17 Baso # (Auto) 0.02 Immature Gran # (Auto) 0.02 Sodium 131 L Potassium 4.9 Chloride 101 Carbon Dioxide 22 Anion Gap 8.0 BUN 41 H Creatinine 7.50 H* Est Cr Clr Drug Dosing 14.9 Est GFR ( Amer) 10.1 Est GFR (Non-Af Amer) 8.7 BUN/Creatinine Ratio 5.4 L Glucose 80 Lactate Calcium 10.0 Magnesium 3.2 H Total Bilirubin 0.3 AST 10 L ALT 31 Alkaline Phosphatase 70 Troponin I < 0.015 Total Protein 7.8 Albumin 3.3 L Globulin 4.5 H Albumin/Globulin Ratio 0.7 L Procalcitonin TSH 4.070 Urine Color Urine Appearance Urine pH Ur Specific [place] Urine Protein Urine Glucose (UA) Urine Ketones Urine Blood Urine Nitrite Urine Bilirubin Urine Urobilinogen Ur Leukocyte Esterase Urine WBC (Auto) Urine RBC (Auto) U Hyaline Cast (Auto) U Epithel Cells (Auto) Urine Bacteria (Auto) Ur Renal Epithelial Cell Calcium Oxalate Crystal Granular Casts Urine Yeast Nasal Screen MRSA (PCR) Urine Opiates Screen Ur Methadone, Qual Urine Barbiturates Ur Phencyclidine (PCP) Clozapine Norclozapine U Amphetamin/Meth Scrn MDMA (Ecstasy) Screen U Benzodiazepines Scrn [place] 2.4 H* Ur Cocaine Metabolite U Marijuana (THC) Screen COVID-19 Eval Order SARS-CoV-2 (PCR) Influenza Type A (PCR) Influenza Type B (PCR) RSV (RT-PCR) 03/04/21 03/04/21 03/04/21 14:02 14:02 14:02 WBC RBC Hgb Hct MCV MCH MCHC RDW Std Deviation RDW Coeff of Julia Plt Count MPV Immature Gran % (Auto) Neut % (Auto) Lymph % (Auto) [place] % (Auto) Eos % (Auto) Baso % (Auto) Neut # (Auto) Lymph # (Auto) [place] # (Auto) Eos # (Auto) Baso # (Auto) Immature Gran # (Auto) Sodium Potassium Chloride Carbon Dioxide Anion Gap BUN Creatinine Est Cr Clr Drug Dosing Est GFR ( Amer) Est GFR (Non-Af Amer) BUN/Creatinine Ratio Glucose Lactate 2.3 H* Calcium Magnesium Total Bilirubin AST ALT Alkaline Phosphatase Troponin I Total Protein Albumin Globulin Albumin/Globulin Ratio Procalcitonin 0.49 TSH Urine Color Urine Appearance Urine pH Ur Specific [place] Urine Protein Urine Glucose (UA) Urine Ketones Urine Blood Urine Nitrite Urine Bilirubin Urine Urobilinogen Ur Leukocyte Esterase Urine WBC (Auto) Urine RBC (Auto) U Hyaline Cast (Auto) U Epithel Cells (Auto) Urine Bacteria (Auto) Ur Renal Epithelial Cell Calcium Oxalate Crystal Granular Casts Urine Yeast Nasal Screen MRSA (PCR) Urine Opiates Screen Ur Methadone, Qual Urine Barbiturates Ur Phencyclidine (PCP) Clozapine Pending Norclozapine Pending U Amphetamin/Meth Scrn MDMA (Ecstasy) Screen U Benzodiazepines Scrn [place] Ur Cocaine Metabolite U Marijuana (THC) Screen COVID-19 Eval Order SARS-CoV-2 (PCR) Influenza Type A (PCR) Influenza Type B (PCR) RSV (RT-PCR) 03/04/21 03/04/21 03/04/21 14:13 14:13 17:54 WBC RBC Hgb Hct MCV MCH MCHC RDW Std Deviation RDW Coeff of Julia Plt Count MPV Immature Gran % (Auto) Neut % (Auto) Lymph % (Auto) [place] % (Auto) Eos % (Auto) Baso % (Auto) Neut # (Auto) Lymph # (Auto) [place] # (Auto) Eos # (Auto) Baso # (Auto) Immature Gran # (Auto) Sodium Potassium Chloride Carbon Dioxide Anion Gap BUN Creatinine Est Cr Clr Drug Dosing Est GFR ( Amer) Est GFR (Non-Af Amer) BUN/Creatinine Ratio Glucose Lactate 1.1 Calcium Magnesium Total Bilirubin AST ALT Alkaline Phosphatase Troponin I Total Protein Albumin Globulin Albumin/Globulin Ratio Procalcitonin TSH Urine Color Urine Appearance Urine pH Ur Specific [place] Urine Protein Urine Glucose (UA) Urine Ketones Urine Blood Urine Nitrite Urine Bilirubin Urine Urobilinogen Ur Leukocyte Esterase Urine WBC (Auto) Urine RBC (Auto) U Hyaline Cast (Auto) U Epithel Cells (Auto) Urine Bacteria (Auto) Ur Renal Epithelial Cell Calcium Oxalate Crystal Granular Casts Urine Yeast Nasal Screen MRSA (PCR) Urine Opiates Screen Ur Methadone, Qual Urine Barbiturates Ur Phencyclidine (PCP) Clozapine Norclozapine U Amphetamin/Meth Scrn MDMA (Ecstasy) Screen U Benzodiazepines Scrn [place] Ur Cocaine Metabolite U Marijuana (THC) Screen COVID-19 Eval Order [facility]FluRsv at [facility] SARS-CoV-2 (PCR) POSITIVE A* Influenza Type A (PCR) Negative Influenza Type B (PCR) Negative RSV (RT-PCR) Negative 03/04/21 03/04/21 03/05/21 19:13 19:13 06:30 WBC RBC Hgb Hct MCV MCH MCHC RDW Std Deviation RDW Coeff of Julia Plt Count MPV Immature Gran % (Auto) Neut % (Auto) Lymph % (Auto) [place] % (Auto) Eos % (Auto) Baso % (Auto) Neut # (Auto) Lymph # (Auto) [place] # (Auto) Eos # (Auto) Baso # (Auto) Immature Gran # (Auto) Sodium Potassium Chloride Carbon Dioxide Anion Gap BUN Creatinine Est Cr Clr Drug Dosing Est GFR ( Amer) Est GFR (Non-Af Amer) BUN/Creatinine Ratio Glucose Lactate Calcium Magnesium Total Bilirubin AST ALT Alkaline Phosphatase Troponin I Total Protein Albumin Globulin Albumin/Globulin Ratio Procalcitonin TSH Urine Color Dark Yellow Urine Appearance Cloudy A Urine pH 5.5 Ur Specific [place] 1.014 Urine Protein 2+ H Urine Glucose (UA) Negative Urine Ketones Negative Urine Blood Trace H Urine Nitrite Negative Urine Bilirubin Negative Urine Urobilinogen Negative Ur Leukocyte Esterase Negative Urine WBC (Auto) 10-30 H Urine RBC (Auto) 0-4 U Hyaline Cast (Auto) 10-30 H U Epithel Cells (Auto) >30 H Urine Bacteria (Auto) Negative Ur Renal Epithelial Cell Not Reportable Calcium Oxalate Crystal Present A Granular Casts 1-5 H Urine Yeast Not Reportable Nasal Screen MRSA (PCR) Negative Urine Opiates Screen Neg Ur Methadone, Qual Neg Urine Barbiturates Neg Ur Phencyclidine (PCP) Neg Clozapine Norclozapine U Amphetamin/Meth Scrn Neg MDMA (Ecstasy) Screen Neg U Benzodiazepines Scrn Neg [place] Ur Cocaine Metabolite Neg U Marijuana (THC) Screen Neg COVID-19 Eval Order SARS-CoV-2 (PCR) Influenza Type A (PCR) Influenza Type B (PCR) RSV (RT-PCR) PG Care Time/CCT Total # of Minutes Spent Total Time Spent with Patient: Total time spent is greater than 50% in coordination of care (as documented) at patient's floor/unit and/or counseling patient: Coding Level of Care Code 89016 Subseq Hosp Care Lvl 3 Diagnoses HARVEY (acute kidney injury) N17.9 [place] toxicity T56.891A Hypotension I95.9 Diabetes mellitus E11.9
[2021-03-05 11:07] LABS: BUN Creatinine Ratio 6.4 (10-20); Calcium 8.5 mg/dl (8.5-10.1); Creatinine Clr Calc Pharmacy 17.9 ml/min; Est GFR (African American) 12.5; Est GFR (Non-African American) 10.7; Potassium 4.6 mmol/L (3.5-5.1)
[2021-03-05] MEDS: INSULIN ASPART 100 UNITS/ML 3 ML PEN SC SCH ×3 (12:51→21:00)
[2021-03-05] MEDS: BENZTROPINE MESYLATE 0.5 MG TAB PO SCH ×2 (12:53→22:06)
[2021-03-05 17:00] LABS: Albumin Level 2.9 gm/dl (3.4-5.0); BUN Creatinine Ratio 6.6 (10-20); Calcium 8.4 mg/dl (8.5-10.1); Creatinine Clr Calc Pharmacy 20.1 ml/min; Est GFR (African American) 14.3; Est GFR (Non-African American) 12.3; Phosphorus 3.5 mg/dl (2.5-4.9); Potassium 4.4 mmol/L (3.5-5.1)
[2021-03-05] MEDS: cloZAPine 100 MG TAB PO SCH (22:06)
[2021-03-06] MEDS: NORMOSOL-R 1,000 ML IV SCH ×3 (03:53→20:58)
[2021-03-06 06:41] LABS: Estimated Average Glucose 140 mg/dl; Hemoglobin A1C 6.5 % (4.5-5.6)
[2021-03-06 06:45] LABS: Albumin Level 2.7 gm/dl (3.4-5.0); Calcium 8.8 mg/dl (8.5-10.1); Creatinine Clr Calc Pharmacy 30.9 ml/min; Est GFR (African American) 23.9; Est GFR (Non-African American) 20.7; Phosphorus 3.4 mg/dl (2.5-4.9); Potassium 4.5 mmol/L (3.5-5.1)
[2021-03-06] MEDS: ASCORBIC ACID 500 MG TAB PO SCH (09:17)
[2021-03-06] MEDS: BENZTROPINE MESYLATE 0.5 MG TAB PO SCH ×2 (09:17→20:37)
[2021-03-06] MEDS: CHOLECALCIFEROL 1,000 UNITS 25 MCG TAB PO SCH (09:18)
[2021-03-06] MEDS: MULTIVITAMIN TAB PO SCH (09:19)
[2021-03-06] MEDS: ZINC SULFATE 220 MG CAPSULE PO SCH (09:19)
[2021-03-06] MEDS: guaiFENesin SUGAR FREE 100 MG/5 ML UDC PO SCH ×2 (09:19→20:37)
[2021-03-06] MEDS: INSULIN ASPART 100 UNITS/ML 3 ML PEN SC SCH ×4 (09:20→20:52)
[2021-03-06] MEDS: cloZAPine 25 MG TAB PO SCH ×2 (09:54→20:36)
--- NOTE | 2021-03-06 10:20 | Nephrology Progress Note ---
Date of Service March 06, 2021 Assessment & Plan (1) HARVEY (acute kidney injury): Prerenal with evidence of ATN. UA bland. Microscopy demonstrates hyaline and granular casts. Creatinine improving with supportive care. CT negative for obstruction. Tolerating IVF. Will continue normosol today to encourage positive fluid balance. Oral NaHCO3 added for NAGMA. Document strict I/O's. Repeat metabolic profile in the AM. (2) [place] toxicity: [place] held. MS changes improved with supportive care. No emergent indication for HD. [place] level improving. (3) Hypotension: Hold lisinopril. BP improving with intravascular volume expansion. (4) Diabetes mellitus: Hold metformin. Admission and Anticipated Discharge Date Admission Date: March 04, 2021 Subjective No acute events overnight. Marilin was not talkative today. I spoke with his nurse in detail. No interest in breakfast this morning. Marilin otherwise appears to be doing well. He is tolerating IVF. He is voiding without difficulty. No fevers or chills. Breathing comfortably. I did not personally examine Marilin today but contacted him by phone and discussed his status with the bedside nurse. Review of Systems Review of Systems: All systems reviewed & are unremarkable except as noted in HPI & below Physical Exam Physical Exam: Deferred due to COVID 19 Results & Data ([facility]) Vital Signs (Past 12 Hours) Vital Signs Temp Pulse Pulse Resp BP Pulse Ox 03/06/21 08:11 37 C 89 16 101/67 97 03/06/21 04:01 37.4 C 67 20 134/79 98 03/05/21 22:58 36.7 C 82 20 100/68 94 03/05/21 22:27 87 Laboratory Results Laboratory Results - last 24 hr 03/05/21 03/05/21 03/05/21 09:45 12:04 15:59 Sodium 133 L 135 L Potassium 4.6 4.4 Chloride 107 107 Carbon Dioxide 19 L 22 Anion Gap 7.0 6.0 BUN 41 H 38 H Creatinine 6.32 H* D 5.64 H* D Est Cr Clr Drug Dosing 17.9 20.1 Est GFR ( Amer) 12.5 14.3 Est GFR (Non-Af Amer) 10.7 12.3 BUN/Creatinine Ratio 6.4 L 6.6 L Glucose 81 90 POC Glucose 77 Estimat Average Glucose Hemoglobin A1c Calcium 8.5 8.4 L Phosphorus 3.5 Albumin 2.9 L [place] 03/05/21 03/06/21 03/06/21 20:51 05:49 05:49 Sodium 139 Potassium 4.5 Chloride 113 H Carbon Dioxide 20 L Anion Gap 6.0 BUN 29 H Creatinine 3.68 H D Est Cr Clr Drug Dosing 30.9 Est GFR ( Amer) 23.9 Est GFR (Non-Af Amer) 20.7 BUN/Creatinine Ratio 8.0 L Glucose 103 H POC Glucose 131 H Estimat Average Glucose 140 Hemoglobin A1c 6.5 H Calcium 8.8 Phosphorus 3.4 Albumin 2.7 L [place] 03/06/21 03/06/21 05:49 08:09 Sodium Potassium Chloride Carbon Dioxide Anion Gap BUN Creatinine Est Cr Clr Drug Dosing Est GFR ( Amer) Est GFR (Non-Af Amer) BUN/Creatinine Ratio Glucose POC Glucose 106 H Estimat Average Glucose Hemoglobin A1c Calcium Phosphorus Albumin [place] 1.5 H PG Care Time/CCT Total # of Minutes Spent Total Time Spent with Patient: Total time spent is greater than 50% in coordination of care (as documented) at patient's floor/unit and/or counseling patient: Coding Level of Care Code 31667 Subseq Hosp Care Lvl 3 Diagnoses HARVEY (acute kidney injury) N17.9 [place] toxicity T56.891A Hypotension I95.9 Diabetes mellitus E11.9
[2021-03-06] MEDS: SODIUM BICARBONATE 650 MG TAB PO SCH ×2 (10:54→20:36)
--- NOTE | 2021-03-06 16:16 | Electrocardiogram Report ---
Test Reason : Blood Pressure : / mmHG Vent. Rate : 091 BPM Atrial Rate : 091 BPM P-R Int : 198 ms QRS Dur : 086 ms QT Int : 390 ms P-R-T Axes : 062 021 028 degrees QTc Int : 479 ms Normal sinus rhythm Normal ECG When compared with ECG of 04-MAR-2021 12:58, No significant change was found Confirmed by Kirk Noland ([id number]) on 03/06/2021 4:16:20 PM Referred By: Yoseph Rosado Confirmed By:Kevin Noland
--- NOTE | 2021-03-06 17:16 | Hospitalist Progress Note ---
Date of Service March 06, 2021 Assessment & Plan (1) [place] toxicity: [place] toxicity likely excerbated by HARVEY Hydration is improved his lithium levels now down to 1.5 normal is 1.2 or low or No further lithium administered (2) HARVEY (acute kidney injury): as above. continue IVF. * ATN in setting of hypotension, ?possible sepsis, and lithium toxicity Creatinine is come down from 7.5 ->3.68. Bicarbonate remains low (but stable)and potassium is stable (3) COVID-19: Saturating well. No signs of Covid pneumonia at this time Do not need decadron at this time. (4) Diabetes mellitus: on orals. will hold placed on sliding scale insulin and monitor. (5) Paranoid schizophrenia: continue benztropine clozapine continue to hold lithium. Patient has a one-to-one sitter. Patient has been a long-term resident of the [facility] from May 2020 hopefully will return to the facility once medically clear Admission and Anticipated Discharge Date Admission Date: March 04, 2021 Subjective Patient was seen he is a one-on-one in the room he was little more talkative today. 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 He was not making much sense in general. No physical complaints lithium level was down almost back to normal his creatinine did come down quite a bit once again has some room to go to ICU bicarbonate were stable Review of Systems Review of Systems: Mild distress and fatigue no headache, blurry or double vision no speech or swallowing issues no chest pain, pressure or palpitations no shortness of breath, cough or wheezes Minor bilateral lower quadrant abdominal pain, no nausea or vomiting, diarrhea or constipation no dysuria, hematuria or frequency no focal joint pain or swelling no back pain, CVA tenderness or radicular pain no bruising, bleeding or rashes no focal signs of weakness or numbness or altered sensation no complaints of anxiety or depression.. Physical Exam Physical Exam: The patient appeared well nourished and normally developed. Vital signs as documented. Head exam is normocephalic atraumatic no scleral icterus is of some nystagmus Neck is without JVD, thyromegaly, or carotid bruits. Lungs are clear to auscultation, no focal loss of breath sounds (no signs of Covid pneumonia) Cardiac exam, Rhythm is regular.. No murmurs, rubs or gallops. Abdominal exam reveals normal bowel sounds, soft non tender, slight distention no masses Extremities are nonedematous and both pedal pulses are present Neurologic exam is alert and oriented, no focal loss of strength or sensation Skin is without bruises or rashes Psychologically is without concerns for anxiety or depression Results & Data Results & Data ([facility]) Vital Signs (Past 12 Hours) Vital Signs Temp Pulse Resp BP Pulse Ox 03/06/21 16:02 99.3 F 88 20 119/72 97 03/06/21 10:47 99.0 F 86 20 115/65 97 03/06/21 08:11 98.6 F 89 16 101/67 97 PG Care Time/CCT Total # of Minutes Spent Total Time Spent with Patient: Total time spent is greater than 50% in coordination of care (as documented) at patient's floor/unit and/or counseling patient: Coding Level of Care Code 79234 Subseq Hosp Care Lvl 3 Diagnoses [place] toxicity T56.891A HARVEY (acute kidney injury) N17.9 COVID-19 U07.1 Diabetes mellitus E11.9 Paranoid schizophrenia F20.0
[2021-03-06] MEDS: cloZAPine 100 MG TAB PO SCH (20:39)
[2021-03-07] MEDS: NORMOSOL-R 1,000 ML IV SCH ×2 (04:58→13:02)
[2021-03-07 07:45] LABS: Albumin Level 2.8 gm/dl (3.4-5.0); BUN Creatinine Ratio 10.1 (10-20); Calcium 8.7 mg/dl (8.5-10.1); Creatinine Clr Calc Pharmacy 61.8 ml/min; Est GFR (African American) 56.5; Est GFR (Non-African American) 48.7; Phosphorus 2.7 mg/dl (2.5-4.9); Potassium 4.2 mmol/L (3.5-5.1)
[2021-03-07] MEDS: CHOLECALCIFEROL 1,000 UNITS 25 MCG TAB PO SCH (08:06)
[2021-03-07] MEDS: ASCORBIC ACID 500 MG TAB PO SCH (08:06)
[2021-03-07] MEDS: BENZTROPINE MESYLATE 0.5 MG TAB PO SCH ×2 (08:06→20:22)
[2021-03-07] MEDS: cloZAPine 25 MG TAB PO SCH ×2 (08:08→20:22)
[2021-03-07] MEDS: ZINC SULFATE 220 MG CAPSULE PO SCH (08:09)
[2021-03-07] MEDS: SODIUM BICARBONATE 650 MG TAB PO SCH (08:09)
[2021-03-07] MEDS: MULTIVITAMIN TAB PO SCH (08:09)
[2021-03-07] MEDS: INSULIN ASPART 100 UNITS/ML 3 ML PEN SC SCH ×4 (08:10→21:22)
--- NOTE | 2021-03-07 09:07 | Nephrology Progress Note ---
Date of Service March 07, 2021 Assessment & Plan (1) HARVEY (acute kidney injury): * HARVEY likely due to dehydration/ATN. 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 No hydronephrosis * 03/04 urine microscopy: 1 - 5 granular casts * Hold IVF, encourage oral hydration * Stop NaHCO3 * Recheck PRP, urine microscopy in am. Will ask direct support staff member to document UO (2) [place] toxicity: * Corrected (3) Diabetes mellitus: * Metoformin is being held due to HARVEY Admission and Anticipated Discharge Date Admission Date: March 04, 2021 Subjective Not interactive. SaO2 95% on RA. UO has not been measured. Physical Exam Physical Exam: Withheld due to COVID-19 pandemic Results & Data ([facility]) Vital Signs (Past 12 Hours) Vital Signs Temp Pulse Pulse Resp BP BP Pulse Ox 03/07/21 07:04 37.0 C 85 20 112/79 97 03/07/21 05:41 91 H 03/07/21 04:00 37.0 C 86 20 117/75 97 03/07/21 00:15 37.0 C 85 20 113/78 99 Laboratory Tests 03/07/21 05:54 Sodium 142 Potassium 4.2 Chloride 111 H Carbon Dioxide 26 BUN 18 Creatinine 1.81 H D Glucose 106 H Laboratory Tests 03/07/21 05:54 [place] 1.0 PG Care Time/CCT Total # of Minutes Spent Total Time Spent with Patient: Total time spent is greater than 50% in coordination of care (as documented) at patient's floor/unit and/or counseling patient: Coding Level of Care Code 60640 Subseq Hosp Care Lvl 3 Diagnoses HARVEY (acute kidney injury) N17.9 [place] toxicity T56.891A Diabetes mellitus E11.9
--- NOTE | 2021-03-07 16:59 | Hospitalist Progress Note ---
Date of Service March 07, 2021 Assessment & Plan (1) [place] toxicity: [place] toxicity likely excerbated by HARVEY Hydration is improved his lithium levels now down to normal We will restart his lithium and 50% of normal and follow his levels (2) HARVEY (acute kidney injury): as above. continue IVF. * ATN in setting of hypotension, ?possible sepsis, and lithium toxicity Creatinine is come down from 7.5 ->1.81. Bicarbonate and potassium are now stab le (3) COVID-19: Saturating well. No signs of Covid pneumonia at this time Do not need decadron at this time. (4) Diabetes mellitus: on orals. will hold placed on sliding scale insulin and monitor. (5) Paranoid schizophrenia: continue benztropine clozapine attempt to restart lithium. Patient has a one-to-one sitter. Patient has been a long-term resident of the [facility] from May 2020 hopefully will return to the facility once medically clear, concerned he may need to be here for 11 days post diagnosis of Covid to be noninfectious and return to the [facility] therapy 03/14/2021 Admission and Anticipated Discharge Date Admission Date: March 04, 2021 Subjective Patient is cautiously interactive. He is affect appears consistent with his previous stay at inpatient psychiatric facility. His lithium level is now normal we will restart his lithium dose his evening at 50% of his previous dose so as not to precipitate any change in his psychological wellbeing. Patient is not having any significant hypoxia with his Covid diagnosis Review of Systems Review of Systems: Mild distress and fatigue no headache, blurry or double vision no speech or swallowing issues no chest pain, pressure or palpitations no shortness of breath, cough or wheezes Minor bilateral lower quadrant abdominal pain, no nausea or vomiting, diarrhea or constipation no dysuria, hematuria or frequency no focal joint pain or swelling no back pain, CVA tenderness or radicular pain no bruising, bleeding or rashes no focal signs of weakness or numbness or altered sensation no complaints of anxiety or depression.. Physical Exam Physical Exam: The patient appeared well nourished and normally developed. Vital signs as documented. Head exam is normocephalic atraumatic no scleral icterus is of some nystagmus Neck is without JVD, thyromegaly, or carotid bruits. Lungs are clear to auscultation, no focal loss of breath sounds (no signs of Covid pneumonia) Cardiac exam, Rhythm is regular.. No murmurs, rubs or gallops. Abdominal exam reveals normal bowel sounds, soft non tender, slight distention no masses Extremities are nonedematous and both pedal pulses are present Neurologic exam is alert and oriented, no focal loss of strength or sensation Skin is without bruises or rashes Psychologically is without concerns for anxiety or depression Results & Data Results & Data ([facility]) Vital Signs (Past 12 Hours) Vital Signs Temp Pulse Pulse Resp BP BP Pulse Ox 03/07/21 15:00 98.8 F 90 20 132/85 95 03/07/21 10:59 98.4 F 81 22 127/91 95 03/07/21 07:04 98.6 F 85 20 112/79 97 03/07/21 05:41 91 H PG Care Time/CCT Total # of Minutes Spent Total Time Spent with Patient: Total time spent is greater than 50% in coordination of care (as documented) at patient's floor/unit and/or counseling patient: Coding Level of Care Code 72972 Subseq Hosp Care Lvl 2 Diagnoses [place] toxicity T56.891A HARVEY (acute kidney injury) N17.9 COVID-19 U07.1 Diabetes mellitus E11.9 Paranoid schizophrenia F20.0
[2021-03-07] MEDS: ENOXAPARIN INJ 40 MG/0.4 ML SYR SQ SCH (18:01)
[2021-03-07] MEDS: cloZAPine 100 MG TAB PO SCH (20:22)
[2021-03-07] MEDS: LITHIUM CARBONATE SLOW REL 300 MG TAB PO SCH (20:54)
[2021-03-08 08:12] LABS: BUN Creatinine Ratio 14.3 (10-20); Calcium 9.4 mg/dl (8.5-10.1); Est GFR (African American) 95.7; Est GFR (Non-African American) 82.6; Potassium 3.9 mmol/L (3.5-5.1)
[2021-03-08] MEDS: ZINC SULFATE 220 MG CAPSULE PO SCH (09:41)
[2021-03-08] MEDS: CHOLECALCIFEROL 1,000 UNITS 25 MCG TAB PO SCH (09:41)
[2021-03-08] MEDS: ASCORBIC ACID 500 MG TAB PO SCH (09:41)
[2021-03-08] MEDS: MULTIVITAMIN TAB PO SCH (09:43)
[2021-03-08] MEDS: cloZAPine 25 MG TAB PO SCH (09:43)
[2021-03-08] MEDS: BENZTROPINE MESYLATE 0.5 MG TAB PO SCH ×2 (09:43→20:38)
[2021-03-08] MEDS: ENOXAPARIN INJ 40 MG/0.4 ML SYR SQ SCH (09:44)
[2021-03-08] MEDS: INSULIN ASPART 100 UNITS/ML 3 ML PEN SC SCH ×4 (09:45→21:00)
--- NOTE | 2021-03-08 09:58 | Nephrology Progress Note ---
Date of Service March 08, 2021 Assessment & Plan (1) HARVEY (acute kidney injury): * HARVEY resolved. Electrolyte balance is acceptable * Encourage oral hydration * No further Nephrology evaluation indicated at this time. Will sign off. Please call if further assistance is needed (2) [place] toxicity: * Corrected (3) Diabetes mellitus: * HARVEY resolved. OK to resume Metformin when needed Admission and Anticipated Discharge Date Admission Date: March 04, 2021 Subjective No concerns. SaO2 95% on RA. UO has not been measured. Physical Exam Physical Exam: Withheld due to COVID-19 pandemic Results & Data ([facility]) Vital Signs (Past 12 Hours) Vital Signs Temp Pulse Pulse Resp BP Pulse Ox 03/08/21 07:10 36.6 C 82 20 122/80 95 03/08/21 03:37 36.5 C 90 18 119/81 95 03/08/21 00:23 79 03/07/21 22:54 37.1 C 92 H 20 126/82 97 Laboratory Tests 03/08/21 03/08/21 06:59 06:59 Sodium 139 Potassium 3.9 Chloride 110 H Carbon Dioxide 23 BUN 17 Creatinine 1.17 D Glucose 141 H [place] 0.8 PG Care Time/CCT Total # of Minutes Spent Total Time Spent with Patient: Total time spent is greater than 50% in coordination of care (as documented) at patient's floor/unit and/or counseling patient: Coding Level of Care Code 23918 Subseq Hosp Care Lvl 3 Diagnoses HARVEY (acute kidney injury) N17.9 [place] toxicity T56.891A Diabetes mellitus E11.9
[2021-03-08 14:11] LABS: Clozapine 1183 mcg/L; Norclozapine 459 mcg/L (25-400)
--- NOTE | 2021-03-08 16:10 | Hospitalist Progress Note ---
Date of Service March 08, 2021 Assessment & Plan (1) [place] toxicity: [place] toxicity likely excerbated by HARVEY now resolved Hydration is improved his lithium levels now down to normal We will restart his lithium and 50% of normal and follow his levels (2) HARVEY (acute kidney injury): Resolved Creatinine is come down from 7.5 ->1.81. Bicarbonate and potassium are now stable (3) COVID-19: Saturating well. No signs of Covid pneumonia at this time Does not need decadron at this time. (4) Diabetes mellitus: on orals. will hold placed on sliding scale insulin and monitor. Nephrology is recommend resuming Metformin when need be (5) Paranoid schizophrenia: continue benztropine clozapine attempt to restart lithium. Patient has a one-to-one sitter. Patient has been a long-term resident of the [facility] facility from May 2020 hopefully will return to the facility once medically clear, concerned he may need to be here for 11 days post diagnosis of Covid to be noninfectious and return to the [facility] therapy 03/14/2021 [facility] was contacted on 03/08/21 it could not corroborate the need for him to be here for 11 days will look for case management division to determine if this is in fact true or not Admission and Anticipated Discharge Date Admission Date: March 04, 2021 Subjective No concerns. SaO2 95% on RA. Patient has no complaints or problems he is the DOS I will he says he rather stay here then go back to the [facility] or go to a psychiatric facility in [facility] where he is from Review of Systems Review of Systems: Mild distress and fatigue no headache, blurry or double vision no speech or swallowing issues no chest pain, pressure or palpitations no shortness of breath, cough or wheezes Minor bilateral lower quadrant abdominal pain, no nausea or vomiting, diarrhea or constipation no dysuria, hematuria or frequency no focal joint pain or swelling no back pain, CVA tenderness or radicular pain no bruising, bleeding or rashes no focal signs of weakness or numbness or altered sensation no complaints of anxiety or depression.. Physical Exam Physical Exam: The patient appeared well nourished and normally developed. Vital signs as documented. Head exam is normocephalic atraumatic no scleral icterus is of some nystagmus Neck is without JVD, thyromegaly, or carotid bruits. Lungs are clear to auscultation, no focal loss of breath sounds (no signs of Covid pneumonia) Cardiac exam, Rhythm is regular.. No murmurs, rubs or gallops. Abdominal exam reveals normal bowel sounds, soft non tender, slight distention no masses Extremities are nonedematous and both pedal pulses are present Neurologic exam is alert and oriented, no focal loss of strength or sensation Skin is without bruises or rashes Psychologically is without concerns for anxiety or depression Results & Data Results & Data ([facility]) Vital Signs (Past 12 Hours) Vital Signs Temp Pulse Pulse Resp BP Pulse Ox 03/08/21 15:32 98.4 F 85 19 123/91 96 03/08/21 11:08 98.2 F 96 H 19 135/92 95 03/08/21 08:00 68 03/08/21 07:10 97.9 F 82 20 122/80 95 PG Care Time/CCT Total # of Minutes Spent Total Time Spent with Patient: Total time spent is greater than 50% in coordination of care (as documented) at patient's floor/unit and/or counseling patient: Coding Level of Care Code 48340 Subseq Hosp Care Lvl 2 Diagnoses [place] toxicity T56.891A HARVEY (acute kidney injury) N17.9 COVID-19 U07.1 Diabetes mellitus E11.9 Paranoid schizophrenia F20.0
[2021-03-08] MEDS ORDERED: Nursing to Pharmacy Communication SCH (18:30)
[2021-03-08] MEDS: LITHIUM CARBONATE SLOW REL 300 MG TAB PO SCH (20:39)
[2021-03-09] MEDS ORDERED: cloZAPine 25 MG TAB PO SCH ×2 (09:00→21:00)
[2021-03-09] MEDS: BENZTROPINE MESYLATE 0.5 MG TAB PO SCH (09:09)
[2021-03-09] MEDS: ASCORBIC ACID 500 MG TAB PO SCH (09:09)
[2021-03-09] MEDS: CHOLECALCIFEROL 1,000 UNITS 25 MCG TAB PO SCH (09:09)
[2021-03-09] MEDS: ENOXAPARIN INJ 40 MG/0.4 ML SYR SQ SCH (09:10)
[2021-03-09] MEDS: MULTIVITAMIN TAB PO SCH (09:10)
[2021-03-09] MEDS: ZINC SULFATE 220 MG CAPSULE PO SCH (09:11)
[2021-03-09] MEDS: INSULIN ASPART 100 UNITS/ML 3 ML PEN SC SCH ×3 (09:12→17:38)
--- NOTE | 2021-03-09 23:26 | Discharge Summary ---
Date of Service March 09, 2021 Admission HPI Per Admitting Provider 30 yo male who is a paranoid schizophrenic and [facility] for mental status vhanges. Patient is a poor historian, unable to obtain further history Principal Diagnosis Acute kidney injury, lithium toxicity Discharge Exam Constitutional WD/WN, vitals as above Neck trachea midline, no thyromegaly Respiratory normal respiratory effort, lungs clear to auscultation Cardiovascular Rate/Rhythm: regular rhythm and + tachycardic Heart Sounds: normal S1 and normal S2; no murmur Extremities: normal capillary refill; no edema Gastrointestinal (Abdomen) normal bowel sounds, soft, nontender, no hepatosplenomegaly Musculoskeletal no cyanosis or clubbing, extremities motor strength 5/5 Skin no rashes, warm and dry Neurologic patellar DTR's 2+ bilat, sensation intact and PERRL, EOMI, accommodation nl, no face palsy, no dysarthria Psychiatric Orientation: alert and oriented x 3 Thought Content: + delusions Lymphatic no cervical or axillary lymphadenopathy Discharge Data Allergies Allergy/AdvReac Type Severity Reaction Status Date / Time No Known Allergies Allergy Unverified 03/04/21 16:30 Consultations 03/04/21 16:00 ED Decision to Admit Stat Ordered Studies 03/04/21 13:44 CT head/brain wo con Stat 03/04/21 15:12 CT abd pelvis wo con Stat Hospital Course (1) [place] toxicity: [place] toxicity likely exacerbated by HARVEY now resolved [place] levels normal for two days resume [place] at normal dosing as the HARVEY likely was the culprit [facility], patient signed a 201 for voluntary admission (2) HARVEY (acute kidney injury): Resolved Creatinine is come down from 7.5 on admission to his baseline of 1, making urine eating and drinking well no nephrotoxic medications on board Bicarbonate and potassium are now stable (3) COVID-19: Saturating well. No signs of Covid pneumonia at this time Does not need decadron at this time. (4) Diabetes mellitus: on orals. will hold placed on sliding scale insulin and monitor. Nephrology is recommend resuming Metformin on discharge (5) Paranoid schizophrenia: continue benztropine, clozapine resume [place] now that renal function is normal Patient has a one-to-one sitter. 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 [place], was just signed over to his name told me he wants to go to [facility] in the future but okay going back to [place] at this time signed a 201 for voluntary re-admission to inpatient psychiatric treatment Total Time Total Time Spent Total Time Spent (In Minutes): 38 Total Time Includes: Examination of the Patient, Discharge Planning, Medication Reconciliation and Communication With Other Providers (psychi liason, coordinated 201 process) Discharge Plan Discharge Items Patient Disposition: Transfer Behavioral Health Fac Reason For Visit: acute kidney injury Discharge Diagnosis: Acute kidney injury [place] toxicity COVID 19 infection Condition on Discharge: Good Goals: continue inpatient psych treatment stay well hydrated, well nourished Activity: Resume your previous activity Weightbearing: Full weightbearing Non-emergency contact: Primary Care Provider Call non-emergency contact if: you have any medication questions Follow-up/Referrals: [facility] [Primary Care Provider] - Diet: Carb Consistent or DM2 Addtl Attending Provider Instructions: Medications: no changes COVID 19 infection, dehydration leading to hypotension, acute kidney injury, lithium toxicity patient is recovered, treated initially with aggressive IV fluids to restore volume renal function back to normal, electrolytes stable lithium level back to normal the past two times it was checked, safe to resume lithium safe to resume lisinopril make sure patient stays well hydrated he has not had any signs of COVID pneumonia, no hypoxia for 5 days while here no shortness of breath at this time, feeling well calm and cooperative Pending Studies at Discharge: No Stand-Alone Forms: My [facility] Medications and DC Order Prescriptions: Continued multivitamin Tablet 1 tab PO DAILY RF: 0 metformin 1,000 mg Tablet 1,000 mg PO BID RF: 0 lithium carbonate [Lithobid] 300 mg Tablet Extended Release 600 mg PO HS RF: 0 lithium carbonate 450 mg Tablet Extended Release 450 mg PO QAM RF: 0 lisinopril 5 mg Tablet 15 mg PO DAILY RF: 0 Levemir U-100 Insulin 100 unit/mL Solution 20 unit SUBCUT BID RF: 0 guaifenesin 100 mg/5 mL Liquid 200 mg PO BID RF: 0 Claritin-D 12 Hour 5-120 mg Tablet Extended Release 12 Hr 1 tab PO Q12H RF: 0 benztropine 0.5 mg Tablet 0.5 mg PO BID RF: 0 clozapine [Clozaril] 100 mg Tablet 200 mg PO HS RF: 0 clozapine [Clozaril] 25 mg Tablet 75 mg PO HS RF: 0 zinc 100 mg Tablet 100 mg PO DAILY RF: 0 ascorbic acid (vitamin C) [Vitamin C] 1,000 mg Tablet 1 g PO DAILY RF: 0 clozapine [Clozaril] 50 mg Tablet 50 mg PO QAM RF: 0 cholecalciferol (vitamin D3) [Vitamin D3] 50 mcg (2,000 unit) Tablet 50 mcg PO DAILY RF: 0 acetaminophen 325 mg Tablet 650 mg PO Q4 MDD 2 tabs PRN (Reason: Pain) RF: 0 diphenhydramine HCl 50 mg Capsule 50 mg PO Q12 MDD 2 doses PRN (Reason: Anxiety) RF: 0 chlorpromazine 100 mg Tablet 100 mg PO Q12 MDD 2 tabs PRN (Reason: agitation/psychosis) RF: 0 albuterol sulfate 90 mcg/actuation Hfa Aerosol Inhaler 2 puff INHALATION Q4 MDD 6 doses PRN (Reason: Shortness Of Breath Or Wheezing) RF: 0 nicotine (polacrilex) [Nicorette] 2 mg Gum 4 mg BUCCAL 5XD MDD 5 PRN (Reason: Smoking Cessation) RF: 0 alum-mag hydroxide-simeth 200-200-20 mg/5 mL Suspension 30 ml PO QID PRN (Reason: gastric distress) RF: 0 Discharge Orders: Discharge Order (Routine); Ordered 03/09/21 Ordered By: Dayday Coley/Other Patient Handouts: Managing Diabetes: The A1C Test Admission Data Admit Date/Time: 03/04/21 17:57 Attending Provider: Dayday Davis Admit Provider: Florentino Partida Primary Care Provider: Yoseph Rosado Other Providers: Florentino Partida Other Interventions: Discharge Summary Assessment (RN) Last Done: 03/09/21 18:04 Coding Level of Care Code D/C Day Management >30 mins Diagnoses [place] toxicity T56.891A HARVEY (acute kidney injury) N17.9 COVID-19 U07.1 Diabetes mellitus E11.9 Paranoid schizophrenia F20.0
== END 2021-03-09 18:38 | DRG 871 ==
LOC: ED 12:43 → SUATTDRO 17:57 → 2E 17:57